=== PATIENT | female | born 1950 | race African-American/Black ===

== ENCOUNTER 2019-12-05 11:58 | Emergency (ER) | payer MEDICARE ==
[~2019-12-05] VITALS: Ht 165.1 cm; Wt 81.8 kg
[~2019-12-05 11:58] MED LIST: ASPI-728 PO; BACL10TA PO; DEXT15SY3 PO; HYDR25TA PO; LISI-660 PO; NITR4.9S5 TL; SIMV-260 PO; TRAM50TA4 PO
[2019-12-05 14:26] LABS: BASOPHILS % (AUTO) 1.1 % (0.0-2.0); EOSINOPHILS % (AUTO) 0.6 % (1.0-6.0); HEMATOCRIT 35.8 % (36-46); HEMOGLOBIN 11.7 g/dL (12.0-16.0); LYMPHOCYTES % (AUTO) 31.8 % (22.0-44.0); MEAN CORPUSCULAR HEMOGLOBIN 29.6 pg (26.0-34.0); MEAN CORPUSCULAR HGB CONC 32.8 G/dL (31.0-37.0); MEAN CORPUSCULAR VOLUME 90 fL (80-100); MONOCYTES # (AUTO) 0.5 K/uL (0.1-1.0); MONOCYTES % (AUTO) 7.3 % (2.0-9.0); NEUTROPHILS # (AUTO) 3.7 K/uL (1.8-7.7); NEUTROPHILS % (AUTO) 59.2 % (40.0-70.0); PLATELET COUNT (AUTO) 253 K/uL (150-450); RED BLOOD CELL COUNT(AUTO) 3.97 MIL/uL (4.00-5.20); RED CELL DISTRIBUTION WIDTH 15.1 % (11.5-14.5)
[2019-12-05 14:38] LABS: ANION GAP 6 mmol/L (8-16); CALCIUM, TOTAL 9.2 mg/dL (8.8-10.5); CARBON DIOXIDE 29 mmol/L (22-29); CHLORIDE 105 mmol/L (98-107); CREATININE 0.71 mg/dL (0.60-1.30); GLOMERULAR FILTR. RATE CALC > 60 mL/min (>60); GLUCOSE,RANDOM 91 mg/dL (70-110); POTASSIUM 3.7 mmol/L (3.5-5.1); SODIUM SERUM 140 mmol/L (136-145); UREA NITROGEN, BLOOD 12 mg/dL (7-18)
[2019-12-05 14:45] LABS: ALANINE AMINOTRANSFERASE 19 U/L (12-78); ALBUMIN 3.1 g/dL (3.4-5.0); ALKALINE PHOSPHATASE 69 U/L (46-116); ASPARTATE AMINOTRANSFERASE 13 U/L (15-37); BILIRUBIN,TOTAL 0.2 mg/dL (0.1-1.0); TOTAL PROTEIN, SERUM 6.6 g/dL (6.4-8.2)
[2019-12-05 14:47] LABS: B-TYPE NATRIURETIC PEPTIDE 13 pg/mL (0-100)
[2019-12-05 15:25] VITALS: BP 133/95
== END 2019-12-05 15:28 | disposition home or self-care (01) ==
LOC: EMS 11:58
DX: J40 Bronchitis, not specified as acute or chronic (principal); I10 Essential (primary) hypertension; Z90.710 Acquired absence of both cervix and uterus; Z79.899 Other long term (current) drug therapy
CPT/HCPCS: 93005

== ENCOUNTER 2022-06-22 08:18 | Emergency (ER) | payer MEDICARE ==
[~2022-06-22] VITALS: Ht 165.1 cm; Wt 75.0 kg
[~2022-06-22 08:18] MED LIST changes: -ASPI-728 PO; -BACL10TA PO; -DEXT15SY3 PO; -LISI-660 PO; +LISI-892 PO; -NITR4.9S5 TL; -TRAM50TA4 PO
[2022-06-22] MEDS ORDERED: GABA-1181 PO (08:26)
[2022-06-22] MEDS ORDERED: AMLO-258 PO (08:26)
[2022-06-22] MEDS ORDERED: LISI-658 PO (08:26)
[2022-06-22] MEDS ORDERED: ACETAMINOPHEN 500 MG TABLET PO ONE (08:45)
[2022-06-22 09:59] VITALS: BP 135/80
== END 2022-06-22 10:01 | disposition home or self-care (01) ==
LOC: EMS 08:18
DX: R51.9 Headache, unspecified (principal); I10 Essential (primary) hypertension; Z87.898 Personal history of other specified conditions; Z90.710 Acquired absence of both cervix and uterus; Z98.890 Other specified postprocedural states
CPT/HCPCS: 70450; 70486; 99284

== ENCOUNTER 2023-05-09 15:18 | Emergency (ER) | payer MEDICARE ==
[~2023-05-09] VITALS: Ht 165.1 cm; Wt 72.8 kg
[~2023-05-09 15:18] MED LIST changes: +AMLO-258 PO; +GABA-1181 PO; -HYDR25TA PO; +LISI-658 PO; -LISI-892 PO; -SIMV-260 PO
[2023-05-09 15:19] VITALS: BP 152/77; PULSE 82; RESP 20; TEMP 98.1
[2023-05-09] MEDS ORDERED: IBUP-1492 PO (15:34)
[2023-05-09] MEDS ORDERED: IBUPROFEN 600 MG TABLET PO ONE (15:45)
== END 2023-05-09 16:15 | disposition home or self-care (01) ==
LOC: EMS 15:22
DX: M67.472 Ganglion, left ankle and foot (principal); M79.7 Fibromyalgia; I10 Essential (primary) hypertension; Z90.49 Acquired absence of other specified parts of digestive tract; Z90.710 Acquired absence of both cervix and uterus
CPT/HCPCS: 99282; Z7502; Z7610

== ENCOUNTER 2024-03-12 14:49 | Emergency (ER) | payer MEDICARE ==
[~2024-03-12] VITALS: Ht 165.1 cm; Wt 72.7 kg
[~2024-03-12 14:49] MED LIST changes: +IBUP-1492 PO
[2024-03-12 15:00] VITALS: TEMP 97.3
[2024-03-12 15:46] LABS: EOSINOPHILS % (AUTO) 0.3 % (1.0-6.0); HEMOGLOBIN 13.1 g/dL (12.0-16.0); LYMPHOCYTES # (AUTO) 1.4 K/uL (1.0-4.8); LYMPHOCYTES % (AUTO) 23.5 % (22.0-44.0); MEAN CORPUSCULAR HEMOGLOBIN 30.5 pg (26.0-34.0); MEAN CORPUSCULAR HGB CONC 33.5 G/dL (31.0-37.0); MEAN CORPUSCULAR VOLUME 91 fL (80-100); MONOCYTES # (AUTO) 0.5 K/uL (0.1-1.0); MONOCYTES % (AUTO) 8.9 % (2.0-9.0); NEUTROPHILS # (AUTO) 3.9 K/uL (1.8-7.7); NEUTROPHILS % (AUTO) 66.3 % (40.0-70.0); PLATELET COUNT (AUTO) 278 K/uL (150-450); RED BLOOD CELL COUNT(AUTO) 4.28 MIL/uL (4.00-5.20); RED CELL DISTRIBUTION WIDTH 14.3 % (11.5-14.5); WHITE BLOOD COUNT (AUTO) 5.8 K/uL (4.5-11.0)
[2024-03-12 15:56] LABS: ANION GAP 8 mmol/L (8-16); CALCIUM, TOTAL 10.3 mg/dL (8.8-10.5); CARBON DIOXIDE 30 mmol/L (22-29); CHLORIDE 101 mmol/L (98-107); CREATININE 0.78 mg/dL (0.60-1.30); GLOMERULAR FILTR. RATE CALC > 60 mL/min (>60); GLUCOSE,RANDOM 105 mg/dL (70-110); POTASSIUM 3.6 mmol/L (3.5-5.1); SODIUM SERUM 139 mmol/L (136-145); UREA NITROGEN, BLOOD 19 mg/dL (7-18)
[2024-03-12 16:04] LABS: ALANINE AMINOTRANSFERASE 20 U/L (12-78); ALBUMIN 3.3 g/dL (3.4-5.0); ALKALINE PHOSPHATASE 84 U/L (46-116); ASPARTATE AMINOTRANSFERASE 15 U/L (15-37); BILIRUBIN,TOTAL 0.3 mg/dL (0.1-1.0); LIPASE 38 U/L (16-77); TOTAL PROTEIN, SERUM 7.7 g/dL (6.4-8.2)
[2024-03-12 16:06] LABS: TROPONIN I-HIGH SENSITIVITY 17 ng/L (<51)
[2024-03-12] MEDS: ACETAMINOPHEN 500 MG TABLET PO ONE (18:27)
[2024-03-12] MEDS: ONDANSETRON HCL 4 MG TABLET PO ONE (18:27)
[2024-03-12 18:35] VITALS: BP 157/86; PULSE 73; RESP 16
[2024-03-12 18:37] LABS: COVID AG,FIA SOURCE NASAL SWAB
[2024-03-12 18:52] LABS: INFLUENZA TYPE A NEGATIVE FOR TYPE A (NEGATIVE); INFLUENZA TYPE B NEGATIVE FOR TYPE B (NEGATIVE)
[2024-03-12 18:53] LABS: SARS-COV2 (COVID) ANTIGEN,FIA Negative (Negative)
[2024-03-12] MEDS ORDERED: ONDA-104 PO (19:27)
[2024-03-12] MEDS ORDERED: ACET-3385 PO (19:27)
[2024-03-12 19:35] LABS: APPEARANCE,URINE CLEAR (CLEAR); BILIRUBIN,URINE NEGATIVE (NEGATIVE); COLOR,URINE LIGHT YELLOW (YELLOW); GLUCOSE, URINE (UA) NEGATIVE (NEGATIVE); KETONES,URINE NEGATIVE (NEGATIVE); LEUKOCYTE ESTERASE ,URINE TRACE (NEGATIVE); NITRATE,URINE NEGATIVE (NEGATIVE); OCCULT BLOOD,URINE NEGATIVE (NEGATIVE); PH,URINE 5.5 (5.0-8.0); PROTEIN,URINE NEGATIVE (NEGATIVE); UROBILINOGEN,URINE <=1.0 mg/dL (<=1.0)
[2024-03-12 19:40] LABS: BACTERIA,URINE Few /HPF (None Seen); RBC,URINE None Seen /HPF (0-2); SQUAMOUS EPITHELIAL CELL,UR Few /LPF (None Seen); WBC,URINE 0-2 /HPF (0-5)
== END 2024-03-12 20:16 | disposition home or self-care (01) ==
LOC: EMS 15:26
DX: B34.9 Viral infection, unspecified (principal); R11.0 Nausea; I10 Essential (primary) hypertension; M79.7 Fibromyalgia; Z90.49 Acquired absence of other specified parts of digestive tract; Z90.710 Acquired absence of both cervix and uterus; Z20.822 Contact with and (suspected) exposure to COVID-19
CPT/HCPCS: 99284; 87426; 80053; 81001; 83690; 84484; 85025; 87804; 36415; 93005; Q0162